=== PATIENT | female | born 1925 | race Caucasian/White ===

== ENCOUNTER 2016-11-10 00:01 | Emergency (ER) | payer BC ==
[~2016-11-10] VITALS: Ht 157.5 cm; Wt 72.7 kg
[~2016-11-10 00:01] MED LIST: ACET-1256 PO; ASPI81TA28 PO; ATOR-24 PO; CALC-416 PO; DOCU-94 PO; FERR324T PO; GUAISYP8 PO; LPR25 PO; MULTTAB63 PO; NTRGSL/4 UT; OMEP20TA PO; PHEN-582 PO; VITAMIN E TOP; VSC/5 PO
[2016-11-10 00:14] VITALS: TEMP 37.8; O2SAT 95; Ht 157.5 cm; Wt 72.7 kg
--- NOTE | 2016-11-10 00:35 | EMERGENCY ROOM VISIT NOTE ---
History First contact with patient: 00:17 Chief Complaint: ALTERED MENTAL STATUS Stated Complaint: FEVER/ALTERED MENTAL STATUS History of Present Illness The patient is a 89 year old female who was referred to the Emergency Room by Greg Pérez with complaints of altered mental status. The patient was found in the home parlor after hours, when usually she is in bed long before. When the nurse found her, the patient was confused, as the patient did not know where she was and did not recognize her nurse who is her regular caregiver. The nurse states that the patient was febrile with a temperature of 103-104, and had a glassy look to her eyes. Patient's family were told that the patient had mentioned that she was feeling unwell the day before and coughing, but was not acting out of the ordinary. They were also told that the flu has been going around the home. Patient currently denies pain or discomfort. When asked why she is here, she says she has been told that she was sick but adds that she doesn't feel sick. Family mentions that she looks around her baseline currently, comparing to when they saw her one week ago. Review of Systems See HPI for pertinent positives and negatives. A total of ten systems were reviewed and were otherwise negative. 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, LUMBAR REG, W/OUT NEUROGENIC CLAUDICATION Family History FHx: cancer Social History Smoking Status: Never Smoker Alcohol Use: none Drug Use: none Marital Status: Housing Status: lives alone Occupation Status: retired Current/Historical Medications Scheduled Aspirin (Aspirin 81), 81 MG PO DAILY Atorvastatin (Lipitor), 40 MG PO DAILY Bimatoprost (Lumigan), 1 DROP OPB DAILY Calcium Carbonate-Cholecalcife (Oyster Shell Calcium+D 500-200 mg-Unit), 1 TAB PO QAM Docusate Sodium (Colace), 100 MG PO BID Ferrous Gluconate (Ferrous Gluconate), 324 MG PO BID Lisinopril (Lisinopril), 5 MG PO DAILY Metoprolol Tartrate (Lopressor), 12.5 MG PO BID Multiple Vitamins W/ Minerals (Therems M), 1 TAB PO DAILY Omeprazole (Prilosec), 20 MG PO QPM Solifenacin (Vesicare), 5 MG PO DAILY Scheduled PRN Acetaminophen (Tylenol), 500 MG PO Q6H PRN for Pain Nitroglycerin (Nitrostat), 0.4 MG UT UD PRN for Chest Pain Allergies Coded Allergies: Penicillins (Verified Allergy, Unknown, UNKNOWN, 11/10/16) Morphine (Verified Adverse Reaction, Mild, CONFUSION, 11/10/16) Physical Exam Vital Signs Date Time Temp Pulse Resp B/P Pulse Ox O2 Delivery O2 Flow Rate FiO2 11/10/16 02:40 76 116/64 11/10/16 01:27 89 11/10/16 01:05 93 Room Air 11/10/16 00:14 37.8 81 20 129/42 95 Room Air 11/10/16 00:09 78 Physical Exam GENERAL: alert, well appearing, thin, lying in bed, no acute distress, non- toxic HEAD: Normocephalic, atraumatic. No sinus tenderness. EYES: PERRL, EOMI, normal conjunctiva OROPHARYNX: no exudate, no erythema, lips, buccal mucosa, and tongue normal and mucous membranes are dry NECK: supple, no nuchal rigidity, no adenopathy, non-tender LUNGS: Normal chest wall mechanics, good air entry. Scattered wheezes bilaterally. No crepitations or crackles HEART: S1 normal and S2 normal, diastolic murmur CHEST: No reproducible tenderness. ABDOMEN: abdomen soft, non-tender, normo-active bowel sounds, no masses, no rebound or guarding. BACK: Back is symmetrical on inspection, no deformities, no midline tenderness, no CVA tenderness. SKIN: Warm, pink, dry. No erythema, rashes, or bruising. EXTREMITIES: Grossly normal. Moving all 4 limbs, strength 5/5 in hand web production assistant and leg raise. No pitting edema. Calves non tender. NEURO: Alert, Oriented to person, place and time. No focal deficits. Normal sensorium, cranial nerves II-XII grossly intact. No facial droop, normal speech , no nystagmus. PSYCH: Mood and affect appropriate. Medical Decision & Procedures ER Provider Diagnostic Interpretation: CHEST X-RAY: No cardiomegaly, no pleural effusion, no obvious consolidation. Imaging largely unchanged from previous study CT HEAD: Compared to CT head 03/01/16 Motion degraded. No ICH, mass effect or edema. No evidence of acute cortical stroke. Visualized sinuses and mastoid air cells are clear. Laboratory Results 11/10/16 00:39 Red Blood Count 4.02, Mean Corpuscular Volume 90.5, Mean Corpuscular Hemoglobin 30.8, Mean Corpuscular Hemoglobin Concent 34.1, Mean Platelet Volume 11.4, Neutrophils (%) (Auto) 73.2, Lymphocytes (%) (Auto) 10.6, Monocytes (%) (Auto) 13.1, Eosinophils (%) (Auto) 2.0, Basophils (%) (Auto) 0.9, Neutrophils # (Auto ) 6.57, Lymphocytes # (Auto) 0.95, Monocytes # (Auto) 1.18, Eosinophils # (Auto ) 0.18, Basophils # (Auto) 0.08 11/10/16 00:39 Test 11/10/16 00:39 11/10/16 01:03 11/10/16 01:14 11/10/16 01:40 White Blood Count 8.98 K/uL (4.8-10.8) Red Blood Count 4.02 M/uL (4.2-5.4) Hemoglobin 12.4 g/dL (12.0-16.0) Hematocrit 36.4 % (37-47) Mean Corpuscular Volume 90.5 fL (80-100) Mean Corpuscular Hemoglobin 30.8 pg (25-34) Mean Corpuscular Hemoglobin Concent 34.1 g/dl (32-36) Platelet Count 127 K/uL (130-400) Mean Platelet Volume 11.4 fL (7.4-10.4) Neutrophils (%) (Auto) 73.2 % Lymphocytes (%) (Auto) 10.6 % Monocytes (%) (Auto) 13.1 % Eosinophils (%) (Auto) 2.0 % Basophils (%) (Auto) 0.9 % Neutrophils # (Auto) 6.57 K/uL (1.4-6.5) Lymphocytes # (Auto) 0.95 K/uL (1.2-3.4) Monocytes # (Auto) 1.18 K/uL (0.11-0.59) Eosinophils # (Auto) 0.18 K/uL (0-0.5) Basophils # (Auto) 0.08 K/uL (0-0.2) RDW Standard Deviation 43.4 fL (36.4-46.3) RDW Coefficient of Variation 13.0 % (11.5-14.5) Immature Granulocyte % (Auto) 0.2 % Immature Granulocyte # (Auto) 0.02 K/uL (0.00-0.02) Prothrombin Time 10.8 SECONDS (9.0-12.0) Prothromb Time International Ratio 1.0 (0.9-1.1) Activated Partial Thromboplast Time 28.6 SECONDS (21.0-31.0) Partial Thromboplastin Ratio 1.1 Anion Gap 9.0 mmol/L (3-11) Est Creatinine Clear Calc Drug Dose 29.7 ml/min Estimated GFR () 46.4 Estimated GFR (Non- 40.0 BUN/Creatinine Ratio 13.6 (10-20) Calcium Level 9.2 mg/dl (8.5-10.1) Total Bilirubin 0.7 mg/dl (0.2-1) Aspartate Amino Transf (AST/SGOT) 26 U/L (15-37) Alanine Aminotransferase (ALT/SGPT) 32 U/L (12-78) Alkaline Phosphatase 71 U/L (45-117) Total Protein 7.4 gm/dl (6.4-8.2) Albumin 3.8 gm/dl (3.4-5.0) Globulin 3.6 gm/dl (2.5-4.0) Albumin/Globulin Ratio 1.1 (0.9-2) Influenza Type A Antigen Neg for Influ A (NEG) Influenza Type B Antigen Neg for Influ B (NEG) Bedside Lactic Acid Venous 0.78 mmol/L (0.90-1.70) Urine Color YELLOW Urine Appearance CLEAR (CLEAR) Urine pH 7.0 (4.5-7.5) Urine Specific Brutus 1.006 (1.000-1.030) Urine Protein NEG (NEG) Urine Glucose (UA) NEG (NEG) Urine Ketones NEG (NEG) Urine Occult Blood NEG (NEG) Urine Nitrite NEG (NEG) Urine Bilirubin NEG (NEG) Urine Urobilinogen NEG (NEG) Urine Leukocyte Esterase NEG (NEG) Urine WBC (Auto) 0 /hpf (0-5) Urine RBC (Auto) 0-4 /hpf (0-4) Urine Hyaline Casts (Auto) 0 /lpf (0-5) Urine Epithelial Cells (Auto) 5-10 /lpf (0-5) Urine Bacteria (Auto) NEG (NEG) ECG Indication: altered mental status Rate (beats per minute): 74 Rhythm: normal sinus Findings: no acute ischemic change, no ectopy Medical Decision 89 year old female presented with altered mental status. The patient was evaluated in room B7. A complete history and physical exam was performed. Etiologies such as metabolic, infection, hypo/hyperglycemia, electrolyte abnormalities, cardiac sources, intracerebral event, toxicologic, neurologic, as well as others were entertained. Septic protocol initiated. Patient declined analgesia for symptom relief. EKG showed NSR with 74bpm. No signs of ischemia, no ectopy. Lots of artifact Lab work was performed. CBC was normal without anemia or leukocytosis, BMP, LFT , coagulation profile and lipase were all within normal limits. Lactic acid was not elevated. Nasal swabs were negative for influenza. CXR reported showed no acute cardiopulmonary process. CT head showed no ICH, mass effect or edema, no evidence of acute cortical stroke. Urinalysis showed no evidence of urinary infection. Likely diagnosis is altered mental status, undifferentiated. As such, patient prescribed conservative management for upper respiratory symptoms, likely of viral origin. Rest, adequate oral intake to improve hydration status, continue home medications. Family was advised to bring her back if persistent dizziness, vomiting, headache, fevers, chest pains, difficulty breathing, black or bloody stools, slurred speech, numbness, weakness , visual changes, or as needed. Follow up with the PCP in 1-2 weeks is advisable. Patient and family understands and agreeable with care plan. Patient discharged home well. Impression Primary Impression: Altered mental status, unspecified Additional Impression: URI (upper respiratory infection) Departure Information Dispostion Home / Self-Care Condition GOOD Referrals [facility] (PCP) Patient Instructions A Signature Page, [facility] Additional Instructions You were seen in the ED today for confusion. Lab work performed showed no indication of infection in the blood and normal values for kidney and liver funtion. Urine analysis was negative for a urinary tract infection. Chest xray did not show any signs of pneumonia and the CT imaging of the head did not indicate stroke of any kind. Influenza swabs also returned negative. As such, treatment upon discharge will be conservative management for your upper respiratory symptoms, which are likely viral in origin and could possibly account for your altered mental status. You can take over the counter medication as required for any pain. Rest and drink plenty of fluids as tolerated. Continue current medications. Follow up with your PCP in 1-2 weeks is advisable. You have been examined and treated today on an emergency basis only. This is not a substitute for, or an effort to provide, complete comprehensive medical care. It is impossible to recognize and treat all injuries or illnesses in a single emergency department visit. It is therefore important that you make a follow up with your physician for close monitoring. Return to the ER immediately for worsening or persistent dizziness, vomiting, headache, fevers, chest pains, difficulty breathing, black or bloody stools, slurred speech, numbness, weakness, visual changes, worsening of your condition , or as needed.
[2016-11-10] MEDS ORDERED: CALC-492 PO (00:44)
[2016-11-10] MEDS ORDERED: BIMA0.01 OPB (00:46)
[2016-11-10] MEDS ORDERED: ASPI-435 PO (00:46)
[2016-11-10] MEDS ORDERED: FERR325T18 PO (00:46)
[2016-11-10] MEDS ORDERED: LSN5 PO (00:46)
[2016-11-10 00:48] LABS: BASO % 0.9 %; BASO ABS # 0.08 K/uL (0-0.2); COMPLETE YES; HEMATOCRIT 36.4 % (37-47); IG% 0.2 %; LYMPH % 10.6 %; LYMPH ABS # 0.95 K/uL (1.2-3.4); MEAN CELL VOLUME 90.5 fL (80-100); MEAN CORPUSCULAR HEMOGLOBIN 30.8 pg (25-34); MEAN CORPUSCULAR HGB CONC 34.1 g/dl (32-36); MEAN PLATELET VOLUME 11.4 fL (7.4-10.4); MONO % 13.1 %; NEUT % 73.2 %; PLATELET COUNT 127 K/uL (130-400); RED BLOOD COUNT 4.02 M/uL (4.2-5.4); WHITE BLOOD COUNT 8.98 K/uL (4.8-10.8)
[2016-11-10] MEDS ORDERED: PRLSR20 PO (00:48)
[2016-11-10 00:59] LABS: PARTIAL THROMBOPLASTIN RATIO 1.1; PROTHROMBIN TIME (PATIENT) 10.8 SECONDS (9.0-12.0)
[2016-11-10 01:05] VITALS: O2SAT 93
[2016-11-10 01:06] LABS: BUN/CREATININE RATIO 13.6 (10-20); CALCIUM 9.2 mg/dl (8.5-10.1); CREATININE 1.2 mg/dl (0.60-1.20); POTASSIUM 4.3 mmol/L (3.5-5.1)
[2016-11-10 01:09] LABS: ALB/GLOB RATIO 1.1 (0.9-2)
[2016-11-10 02:12] LABS: URINE APPEARANCE CLEAR (CLEAR); URINE BILIRUBIN NEG (NEG); URINE COLOR YELLOW; URINE NITRITE NEG (NEG); URINE SPECIFIC GRAVITY 1.006 (1.000-1.030); UROBILINOGEN NEG (NEG); ZZURINE CULT IF INDIC CATH NO
[2016-11-10 02:19] LABS: MANUAL MICROSCOPIC REQUIRED? NO; REVIEW REQ? NO
--- NOTE | 2016-11-10 02:36 | EMERGENCY ROOM VISIT NOTE ---
ED Visit Note First contact with patient: 00:16 Resident Physician Supervision Note: I interviewed and examined the patient. Discussed with Dr. Alfred and agree with findings and plan as documented in the note. The patient is currently feeling well. She was sound asleep with a normal oxygen saturation. I reviewed the results of the CT scan, laboratory studies, and urinalysis with the patient and her family. They describe that the patient' s mental status seems to be declining over the past couple of months. They do have an appointment scheduled with neurology in 2 weeks. I've encouraged him to keep that. If the patient's respiratory symptoms continue, the PCP may want to start the patient on antibiotics. Documented By: Clau Joel
[2016-11-10 02:40] VITALS: BP 116/64; PULSE 76
--- NOTE | 2016-11-10 07:16 | DIAGNOSTIC IMAGING REPORT ---
CT SCAN OF THE BRAIN WITHOUT IV CONTRAST CLINICAL HISTORY: Change in mental status. COMPARISON STUDY: CT of the brain dated 03/01/2016. TECHNIQUE: Unenhanced axial CT scan of the brain is performed from the vertex to the skull base. CT DOSE: 537.48 mGy.cm FINDINGS: Brain parenchyma: There are age-related involutional changes noting moderate confluent subcortical and periventricular microangiopathic change. There is no hemorrhage, mass effect, or evidence of acute territorial ischemia by CT criteria. [place]hillon-white matter is preserved. No extra-axial fluid collection is seen. Ventricles, sulci, cisterns: Prominent secondary to involutional change. Intracranial vasculature: There is atherosclerotic calcification of the cavernous carotid arteries. Calvarium: Unremarkable. Sinuses and mastoids: The visualized paranasal sinuses are clear. The mastoid air cells are well pneumatized. Orbits: The bony orbits are grossly intact. There are bilateral ocular lens implants. IMPRESSION: Senescent changes as above with no hemorrhage, mass effect, or evidence of acute territorial ischemia by CT criteria. Electronically signed by: Tommy Richardson M.D. 11/10/2016 7:14 AM Dictated Date/Time: 11/10/2016 7:13 AM
--- NOTE | 2016-11-10 08:09 | DIAGNOSTIC IMAGING REPORT ---
CHEST ONE VIEW PORTABLE HISTORY: Sepsis COMPARISON: Chest 10/09/2013. FINDINGS: No pleural effusions. No pneumothorax. Linear density at the left lung base may represent scarring or atelectasis. There are postoperative changes. The heart is normal in size. Mild diffuse interstitial thickening persists. IMPRESSION: 1. No change in the mild diffuse interstitial thickening. This may be chronic. 2. A few linear densities at the left lung base which may represent scarring or subsegmental atelectasis. Electronically signed by: Alvin Luo M.D. 11/10/2016 8:07 AM Dictated Date/Time: 11/10/2016 8:01 AM
== END 2016-11-10 03:30 | disposition home or self-care (01) ==
LOC: EDBD 00:01 → C.EDB 00:03
DX: R41.82 Altered mental status, unspecified (principal); J06.9 Acute upper respiratory infection, unspecified; R50.9 Fever, unspecified; I65.29 Occlusion and stenosis of unspecified carotid artery